=== PATIENT | female | born 1965 | race Caucasian/White ===

== ENCOUNTER 2019-07-12 18:12 | Inpatient (IN) | payer MEDICARE, MEDICAID ==
[~2019-07-12] VITALS: Ht 165.1 cm; Wt 89.5 kg
[~2019-07-12 18:12] MED LIST: DULO60CA65; GLYB5TAB7 PO; LEVO175T7 PO; LISI-604 PO; METO1TAB25 PO; OMEP-297 PO; ONDA4TAB9 PO
[2019-07-12 19:42] LABS: BASOPHILS # (AUTO) 0.1 X10'3 (0-0.2); BASOPHILS % (AUTO) 1.1 % (0-1); EOSINOPHILS # (AUTO) 0.4 X10'3 (0-0.9); HEMATOCRIT 46.7 % (35.0-45.0); HEMOGLOBIN 16.5 g/dl (12.0-16.0); LYMPHOCYTES # (AUTO) 5.3 X10'3 (1.1-4.8); MEAN CORPUSCULAR HEMOGLOBIN 32.3 PG (27.0-31.0); MEAN CORPUSCULAR HGB CONC 35.3 g/dL (33.0-36.5); MEAN CORPUSCULAR VOLUME 91.6 FL (78-98); MEAN PLATELET VOLUME 9.3 FL (7.4-10.4); MONOCYTES # (AUTO) 0.7 X10'3 (0-0.9); NEUTROPHILS # (AUTO) 5.5 X10'3 (1.8-7.7); NEUTROPHILS % (AUTO) 45.9 % (42-75); PLATELET COUNT 338 X10'3 (140-440); RED CELL DISTRIBUTION WIDTH 13.6 % (11.5-14.5)
[2019-07-12 19:53] LABS: ALANINE AMINOTRANSFERASE 57 U/L (12-78); ALBUMIN 3.8 G/DL (3.4-5.0); ALKALINE PHOSPHATASE 108 IU/L (46-116); ANION GAP 9 (8-16); ASPARTATE AMINO TRANSFERASE 35 U/L (10-37); BILIRUBIN,TOTAL 0.3 MG/DL (0.1-1.0); BLOOD UREA NITROGEN 24 MG/DL (7-18); BUN/CREATININE RATIO 20.5 (6.6-38.0); CALCIUM 9.1 MG/DL (8.5-10.1); CHLORIDE 104 MMOL/L (99-107); CREATININE 1.17 MG/DL (0.40-0.90); GLUCOSE 254 MG/DL (70-104); POTASSIUM 4.4 MMOL/L (3.5-5.1); SODIUM 136 MMOL/L (135-145); TOTAL CARBON DIOXIDE 22.7 MMOL/L (24-32); TOTAL PROTEIN 7.6 G/DL (6.4-8.2); eGFR 48 ML/MIN
[2019-07-12] MEDS ORDERED: vancomycin/NS 1 GM ADD-VANTAGE 250 ML IV ONE (20:05)
[2019-07-12] MEDS ORDERED: ringers solution, lactated 1000ml IV soln IV ONE (20:05)
--- NOTE | 2019-07-12 20:54 | NUR ---
Patient resting comfortably in bed. She requests water which is provided. Patient updated on POC.
[2019-07-12 21:04] LABS: CLARITY,URINE CLEAR (Clear); COLOR,URINE YELLOW (Yellow); GLUCOSE, URINE >=1000 mg/dl (Neg); KETONES,URINE NEGATIVE (Neg); LEUKOCYTE ESTERASE ,URINE NEGATIVE (Neg); NITRITES, URINE NEGATIVE (Neg); OCCULT BLOOD,URINE NEGATIVE (Neg); PROTEIN,URINE NEGATIVE (Neg); UROBILINOGEN,URINE 0.2 E.U/dL (0.2-1.0)
[2019-07-12 21:05] LABS: UA COLLECTION TYPE CLN CATCH MIDSTREAM
[2019-07-12 21:11] LABS: BACTERIA,URINE 1+ /HPF (Neg); MUCUS STRANDS NONE SEEN /LPF (Neg); RBC,URINE NONE SEEN /HPF (0-2); SQUAMOUS EPITHELIAL CELL,UR MANY /LPF (FEW); WBC,URINE NONE SEEN /HPF (0-4)
[2019-07-12] MEDS ORDERED: normal saline 1000ml 1,000 ML IV SCH (21:29)
[2019-07-12] MEDS ORDERED: dextrose ORAL solution 15 GM/59 ML bottle PO PRN ×2 (21:30)
[2019-07-12] MEDS ORDERED: potassium CL 10mEq/100ml bag 100 ML IV PRN ×2 (21:30)
[2019-07-12] MEDS ORDERED: ondansetron/PF 4mg/2ml inj IV PRN ×2 (21:30→21:45)
[2019-07-12] MEDS ORDERED: MESSAGE TO PHARMACY PO ONE (21:30)
[2019-07-12] MEDS ORDERED: magnesium Cl slow-release 64mg tablet PO PRN (21:30)
[2019-07-12] MEDS ORDERED: potassium Cl 20 mEq SR tablet PO PRN ×2 (21:30)
[2019-07-12] MEDS ORDERED: magnesium 4gm in 100ml NS 100 ML IV PRN (21:30)
[2019-07-12] MEDS ORDERED: magnesium 2GM in 50ml NS 50 ML IV PRN (21:30)
[2019-07-12] MEDS ORDERED: dextrose 50%-water 50ml dispensing syringe IV PRN ×2 (21:30)
[2019-07-12] MEDS ORDERED: acetaminophen 325mg tablet PO PRN ×2 (21:30)
[2019-07-12] MEDS ORDERED: glucagon, human recombinant 1mg kit SUBCUT PRN (21:30)
[2019-07-12 22:01] LABS: HEMOGLOBIN A1C 8.8 % (4.5-6.2)
--- NOTE | 2019-07-12 22:30 | NUR ---
BELONGINGS: SHIRT, BRA, FLIP/FLOPS, CELL PHONE & ASSEMBLER RUBBER FOOTWEAR, GALDAMEZ ($18), PURSE & WALLET,. EARRINGS (X4), READING GLASSES
--- NOTE | 2019-07-12 22:45 | NUR ---
Received report from Gi in the ER. Pt arrived on the unit via gurney and was able to ambulate to the bed. NS running @ 20mls/hr, VSS, R/A. No signs of distress. Will continue to monitor.
[2019-07-12] MEDS ORDERED: LANTUS SQ (23:30)
[2019-07-13] VITALS: BP 139/71
[2019-07-13 05:14] LABS: BASOPHILS # (AUTO) 0.1 X10'3 (0-0.2); EOSINOPHILS # (AUTO) 0.4 X10'3 (0-0.9); EOSINOPHILS % (AUTO) 3.8 % (0-6); HEMOGLOBIN 14.8 g/dl (12.0-16.0); MONOCYTES # (AUTO) 0.6 X10'3 (0-0.9); MONOCYTES % (AUTO) 5.9 % (2-12); WHITE BLOOD COUNT 9.9 X10'3 (4.5-11.0)
[2019-07-13 05:18] LABS: BASOPHILS % (AUTO) 0.8 % (0-1); HEMATOCRIT 41.9 % (35.0-45.0); LYMPHOCYTES # (AUTO) 5.5 X10'3 (1.1-4.8); LYMPHOCYTES % (AUTO) 55.6 % (21-51); MEAN CORPUSCULAR HEMOGLOBIN 32.3 PG (27.0-31.0); MEAN CORPUSCULAR HGB CONC 35.4 g/dL (33.0-36.5); MEAN CORPUSCULAR VOLUME 91.2 FL (78-98); NEUTROPHILS # (AUTO) 3.4 X10'3 (1.8-7.7); NEUTROPHILS % (AUTO) 33.9 % (42-75); PLATELET COUNT 278 X10'3 (140-440); RED CELL DISTRIBUTION WIDTH 13.8 % (11.5-14.5)
[2019-07-13 05:31] LABS: ALBUMIN 3.2 G/DL (3.4-5.0); ANION GAP 9 (8-16); BLOOD UREA NITROGEN 22 MG/DL (7-18); BUN/CREATININE RATIO 19.8 (6.6-38.0); CALCIUM 8.5 MG/DL (8.5-10.1); CHLORIDE 106 MMOL/L (99-107); CREATININE 1.11 MG/DL (0.40-0.90); GLUCOSE 171 MG/DL (70-104); MAGNESIUM 1.7 MG/DL (1.5-2.4); SODIUM 139 MMOL/L (135-145); eGFR 51 ML/MIN
--- NOTE | 2019-07-13 06:26 | NUR ---
Patient in room [facility]. I have received report from allie medellin and had the opportunity to ask questions and assume patient care.
[2019-07-13 06:40] LABS: TOTAL CELLS COUNTED 100
[2019-07-13 06:41] LABS: PLATELET ESTIMATE NORMAL
--- NOTE | 2019-07-13 06:55 | NUR ---
Problems reprioritized. Patient report given, questions answered & plan of care reviewed with Catherine SKAGGS.
[2019-07-13 07:00] VITALS: BP 121/68
[2019-07-13] MEDS: K and/or MAG REPLACEMENT MC SCH ×2 (08:00→20:00)
[2019-07-13] MEDS: VANCOmycin 1250MG/NS 250ml Bag 250 ML IV SCH ×2 (08:52→21:11)
[2019-07-13] MEDS ORDERED: DULO30CA52 PO (09:38)
[2019-07-13] MEDS: levoTHYROXINE 175mcg tablet PO SCH (10:50)
[2019-07-13] MEDS: duloxetine 30mg CAPSULE.DR PO SCH (10:50)
[2019-07-13] MEDS: HYDROcodone/acetaminophen 10/325mg tab PO PRN ×2 (10:51→21:11)
[2019-07-13] MEDS ORDERED: metoprolol tartrate 50mg tablet PO SCH (11:00)
[2019-07-13] MEDS ORDERED: HYDROchlorothiazide 25mg tablet PO SCH (11:00)
[2019-07-13] MEDS ORDERED: GLIP10TA11 PO (11:02)
[2019-07-13] MEDS ORDERED: METO25TA6 PO (11:03)
[2019-07-13] MEDS ORDERED: EZET10TA48 PO (11:05)
[2019-07-13] MEDS ORDERED: INSU100C10 SQ (11:05)
[2019-07-13] MEDS ORDERED: dextrose ORAL solution 15 GM/59 ML bottle PO PRN ×2 (11:15)
[2019-07-13] MEDS ORDERED: MESSAGE TO PHARMACY PO ONE (11:15)
[2019-07-13] MEDS ORDERED: glucagon, human recombinant 1mg kit SUBCUT PRN (11:15)
[2019-07-13] MEDS ORDERED: dextrose 50%-water 50ml dispensing syringe IV PRN ×2 (11:15)
[2019-07-13] MEDS: metoprolol tartrate 12.5mg (1/2 tablet) PO SCH ×2 (11:15→20:00)
[2019-07-13] MEDS ORDERED: TETanus/Pertussis (Acell)/Diphther VAC/PF (Tdap-Adult) 0.5ml syringe IMVAC ONE (11:20)
[2019-07-13 11:36] VITALS: BP 100/54
--- NOTE | 2019-07-13 12:26 | NUR ---
staff talked with patient with regards code status. patient wants code status changed to full code. Dr wilde informed, awaiting order.
[2019-07-13] MEDS: insulin Lispro (HumaLOG) vial - multi-dose SQ SCH ×3 (12:47→21:15)
--- NOTE | 2019-07-13 14:56 | NUR ---
DM consult: Pt with A1c 8.8 seen at bedside. Pt reports her A1c was in the sevens this past few months and pt is unsure as to why her A1c is up. Pt reports taking the same DM medications per rx and states she hasn't made any changes in her dietary habits or exercise. Pt reports she lost several family members this year including her son, it's likely that patient's BG levels have been fluctuating r/t stress. Pt reports she doesn't have a consistent MD for DM management however would like resources to help her find an tracer clerk, RD called and left a VM to for resources. Pt denies any further questions about DM management. Pt admit with cellulitis. Written and verbal protein and DM education with referral to DM class and RD contact information provided. Pt reports improving appetite and is with no food preferences at this time. Pt currently on a CHO controlled diet documented with 100% PO intake meeting nutrient needs. Pt denies food allergies, difficulty chewing/swallowing, or constipation/diarrhea. [facility] 07/12. Will continue to follow. Addendum: 07/13/19 at [address] Amended: Links added.
--- NOTE | 2019-07-13 18:44 | NUR ---
Problems reprioritized. Patient report given, questions answered & plan of care reviewed with Tete SKAGGS.
[2019-07-13 20:00] VITALS: BP 114/62
[2019-07-13] MEDS ORDERED: insulin glargine (Lantus) pen - multi-dose SQ SCH (21:00)
[2019-07-13] MEDS ORDERED: ezetimibe 10mg tablet PO SCH (21:00)
--- NOTE | 2019-07-13 22:27 | NUR ---
Patient in room [facility]. I have received report from GILES Alexander and had the opportunity to ask questions and assume patient care. Addendum: 07/13/19 at 2228 by Tete Jimenez RN Amended: Links added.
[2019-07-14] VITALS: BP 115/55
[2019-07-14 05:35] LABS: BASOPHILS # (AUTO) 0.1 X10'3 (0-0.2); BASOPHILS % (AUTO) 0.8 % (0-1); EOSINOPHILS # (AUTO) 0.3 X10'3 (0-0.9); EOSINOPHILS % (AUTO) 4.9 % (0-6); HEMATOCRIT 39.6 % (35.0-45.0); HEMOGLOBIN 13.9 g/dl (12.0-16.0); LYMPHOCYTES % (AUTO) 56.5 % (21-51); MEAN CORPUSCULAR HEMOGLOBIN 32.6 PG (27.0-31.0); MEAN CORPUSCULAR HGB CONC 35.1 g/dL (33.0-36.5); MEAN CORPUSCULAR VOLUME 92.6 FL (78-98); MONOCYTES # (AUTO) 0.4 X10'3 (0-0.9); MONOCYTES % (AUTO) 5.6 % (2-12); NEUTROPHILS # (AUTO) 2.3 X10'3 (1.8-7.7); NEUTROPHILS % (AUTO) 32.2 % (42-75); PLATELET COUNT 235 X10'3 (140-440); RED BLOOD COUNT 4.27 X10'6 (4.20-5.60); RED CELL DISTRIBUTION WIDTH 13.8 % (11.5-14.5)
[2019-07-14 05:48] LABS: ALBUMIN 3.3 G/DL (3.4-5.0); ANION GAP 6 (8-16); BLOOD UREA NITROGEN 19 MG/DL (7-18); BUN/CREATININE RATIO 19.2 (6.6-38.0); CALCIUM 8.4 MG/DL (8.5-10.1); CHLORIDE 105 MMOL/L (99-107); CREATININE 0.99 MG/DL (0.40-0.90); GLUCOSE 204 MG/DL (70-104); MAGNESIUM 1.8 MG/DL (1.5-2.4); POTASSIUM 4.2 MMOL/L (3.5-5.1); SODIUM 139 MMOL/L (135-145); TOTAL CARBON DIOXIDE 27.6 MMOL/L (24-32); eGFR 58 ML/MIN
[2019-07-14 06:00] VITALS: BP 107/57
--- NOTE | 2019-07-14 06:17 | NUR ---
Problems reprioritized. Patient report given, questions answered & plan of care reviewed with GILES peters. Addendum: 07/14/19 at 0617 by Tete Jimenez RN Amended: Links added.
--- NOTE | 2019-07-14 06:24 | NUR ---
Patient in room [facility]. I have received report from richa SKAGGS and had the opportunity to ask questions and assume patient care.
[2019-07-14] MEDS: levoTHYROXINE 175mcg tablet PO SCH (07:31)
[2019-07-14] MEDS: VANCOmycin 1250MG/NS 250ml Bag 250 ML IV SCH (07:31)
[2019-07-14] MEDS: metoprolol tartrate 12.5mg (1/2 tablet) PO SCH (07:31)
[2019-07-14] MEDS: duloxetine 30mg CAPSULE.DR PO SCH (07:31)
[2019-07-14] MEDS: HYDROcodone/acetaminophen 10/325mg tab PO PRN (07:34)
[2019-07-14] MEDS ORDERED: pantoprazole 40mg Tablet.DR PO SCH (08:00)
[2019-07-14] MEDS: K and/or MAG REPLACEMENT MC SCH (08:00)
[2019-07-14] MEDS: insulin Lispro (HumaLOG) vial - multi-dose SQ SCH ×2 (09:40→12:58)
[2019-07-14 11:00] VITALS: BP 110/60
[2019-07-14] MEDS ORDERED: HYDR-4353 PO (14:30)
[2019-07-14] MEDS ORDERED: LEVO500T2 PO (14:30)
--- NOTE | 2019-07-14 14:49 | NUR ---
patient seen by DR Arora is for discharge, All DC instructions given to patient. prescription for norco given to patient. Patient awaiting ride at this time.
[2019-07-14] MEDS ORDERED: VANCOMYCIN LEVEL IV ONE (19:30)
== END 2019-07-14 17:30 | disposition home or self-care (01) | DRG 603 ==
LOC: ER 18:12 → SUR 3N 21:43
PROVIDERS: ADMIT Internal Medicine; ATTEND Family Medicine
PROC: 3E0234Z Introduction of Serum, Toxoid and Vaccine into Muscle, Percutaneous Approach (ICD-10-PCS; principal; 2019-07-13)
DX: L03.311 Cellulitis of abdominal wall (principal); N17.9 Acute kidney failure, unspecified; L03.116 Cellulitis of left lower limb; E03.9 Hypothyroidism, unspecified; F32.9 Major depressive disorder, single episode, unspecified; I12.9 Hypertensive chronic kidney disease with stage 1 through stage 4 chronic kidney disease, or unspecified chronic kidney disease; E11.22 Type 2 diabetes mellitus with diabetic chronic kidney disease; N18.9 Chronic kidney disease, unspecified; G43.909 Migraine, unspecified, not intractable, without status migrainosus; K21.9 Gastro-esophageal reflux disease without esophagitis; W18.39XA Other fall on same level, initial encounter; S80.212A Abrasion, left knee, initial encounter; Z88.9 Allergy status to unspecified drugs, medicaments and biological substances; Z23 Encounter for immunization; Z87.891 Personal history of nicotine dependence; Z88.5 Allergy status to narcotic agent; Z88.0 Allergy status to penicillin; Z88.8 Allergy status to other drugs, medicaments and biological substances; Z90.49 Acquired absence of other specified parts of digestive tract; Z82.49 Family history of ischemic heart disease and other diseases of the circulatory system; Z80.9 Family history of malignant neoplasm, unspecified; Y93.89 Activity, other specified; Y92.89 Other specified places as the place of occurrence of the external cause; Y99.8 Other external cause status
CPT/HCPCS: 36415; 71045; 80048; 80053; 81001; 82948; 83036; 83605; 83735; 84145; 84443; 84484; 85025; 87040; 87081; 90715; 93005; 96365; 99285; G0378; J1815; J2405; J3370; J7030; J7120

== ENCOUNTER 2021-09-03 21:35 | Emergency (ER) | payer MEDICARE, MEDICAID ==
[~2021-09-03] VITALS: Ht 162.6 cm; Wt 81.8 kg
[~2021-09-03 21:35] MED LIST changes: +DULO30CA52 PO; -DULO60CA65; +EZET10TA48 PO; +GLIP10TA11 PO; -GLYB5TAB7 PO; +HYDR-4353 PO; +INSU100C10 SQ; +LANTUS SQ; -LISI-604 PO; +LOP25T PO; -METO1TAB25 PO; -OMEP-297 PO; +OMEP20CA15 PO
[2021-09-03] MEDS ORDERED: clindamycin 150mg capsule PO ONE (22:05)
[2021-09-03] MEDS ORDERED: HYDROcodone/acetaminophen 5mg/325mg tablet PO ONE (22:30)
[2021-09-03] MEDS ORDERED: normal saline 1000ML IV soln IVB ONE (22:30)
[2021-09-03 22:37] LABS: BASOPHILS # (AUTO) 0.1 X10'3 (0-0.2); BASOPHILS % (AUTO) 0.7 % (0-1); EOSINOPHILS # (AUTO) 0.4 X10'3 (0-0.9); HEMATOCRIT 39.8 % (35.0-45.0); HEMOGLOBIN 13.4 g/dl (12.0-16.0); LYMPHOCYTES # (AUTO) 3.1 X10'3 (1.1-4.8); LYMPHOCYTES % (AUTO) 38.2 % (21-51); MEAN CORPUSCULAR HEMOGLOBIN 30.7 PG (27.0-31.0); MEAN CORPUSCULAR HGB CONC 33.6 g/dL (33.0-36.5); MEAN CORPUSCULAR VOLUME 91.3 FL (78-98); MEAN PLATELET VOLUME 9.9 FL (7.4-10.4); MONOCYTES # (AUTO) 0.5 X10'3 (0-0.9); MONOCYTES % (AUTO) 6.6 % (2-12); NEUTROPHILS % (AUTO) 49.5 % (42-75); PLATELET COUNT 237 X10'3 (140-440); RED BLOOD COUNT 4.36 X10'6 (4.20-5.60); RED CELL DISTRIBUTION WIDTH 12.9 % (11.5-14.5); WHITE BLOOD COUNT 8.2 X10'3 (4.5-11.0)
[2021-09-03 22:50] LABS: ALBUMIN 2.9 G/DL (3.4-5.0); ANION GAP 6 (8-16); BLOOD UREA NITROGEN 14 MG/DL (7-18); BUN/CREATININE RATIO 15.2 (6.6-38.0); CALCIUM 8.2 MG/DL (8.5-10.1); CHLORIDE 102 MMOL/L (99-107); CREATININE 0.92 MG/DL (0.40-0.90); GLUCOSE 417 MG/DL (70-104); POTASSIUM 3.6 MMOL/L (3.5-5.1); SODIUM 134 MMOL/L (135-145); TOTAL CARBON DIOXIDE 26.4 MMOL/L (24-32); eGFR 63 ML/MIN
--- NOTE | 2021-09-03 22:57 | NUR ---
SET UP FOR PROCEDURE, LAC TRAY.
[2021-09-03] MEDS ORDERED: CLIN-97 PO (23:03)
[2021-09-03 23:26] VITALS: BP 151/87
== END 2021-09-03 23:28 | disposition home or self-care (01) ==
LOC: ER 21:36
DX: L03.211 Cellulitis of face (principal); E11.65 Type 2 diabetes mellitus with hyperglycemia; G43.909 Migraine, unspecified, not intractable, without status migrainosus; Z87.19 Personal history of other diseases of the digestive system; Z90.49 Acquired absence of other specified parts of digestive tract; Z72.89 Other problems related to lifestyle; Z88.8 Allergy status to other drugs, medicaments and biological substances; Z88.1 Allergy status to other antibiotic agents; Z79.2 Long term (current) use of antibiotics; Z79.4 Long term (current) use of insulin; Z79.899 Other long term (current) drug therapy
CPT/HCPCS: 10060; 36415; 80048; 82948; 85025; 96360; 99284; J7030

== ENCOUNTER 2024-01-02 09:36 | Emergency (ER) | payer MEDICARE, MEDICAID ==
[~2024-01-02] VITALS: Ht 162.6 cm; Wt 72.8 kg
[~2024-01-02 09:36] MED LIST changes: +CLIN-97 PO
[2024-01-02 09:43] VITALS: BP 117/78; PULSE 89; TEMP 98; O2SAT 98
[2024-01-02 11:02] VITALS: RESP 16
[2024-01-02] MEDS ORDERED: DOXY-356 PO (12:02)
[2024-01-02] MEDS: mupirocin 2% ointment 22GM TP STA (12:30)
== END 2024-01-02 12:34 | disposition home or self-care (01) ==
LOC: ER 09:36
DX: S00.01XA Abrasion of scalp, initial encounter (principal); L02.811 Cutaneous abscess of head [any part, except face]; L73.9 Follicular disorder, unspecified; E11.9 Type 2 diabetes mellitus without complications; G43.909 Migraine, unspecified, not intractable, without status migrainosus; I50.9 Heart failure, unspecified; Z88.8 Allergy status to other drugs, medicaments and biological substances; Z91.041 Radiographic dye allergy status; Z88.5 Allergy status to narcotic agent; Z88.0 Allergy status to penicillin; Z79.2 Long term (current) use of antibiotics; Z79.899 Other long term (current) drug therapy; Z79.84 Long term (current) use of oral hypoglycemic drugs; Z90.710 Acquired absence of both cervix and uterus; W19.XXXA Unspecified fall, initial encounter; Y93.89 Activity, other specified; Y92.89 Other specified places as the place of occurrence of the external cause; Y99.8 Other external cause status
CPT/HCPCS: 70450; 72125; 99284; L0172

== ENCOUNTER 2024-01-07 18:27 | Emergency (ER) | payer MEDICARE, MEDICAID ==
[~2024-01-07] VITALS: Ht 162.6 cm; Wt 75.0 kg
[~2024-01-07 18:27] MED LIST changes: +DOXY-356 PO
[2024-01-07 18:53] VITALS: BP 139/85; PULSE 86; O2SAT 98
[2024-01-07] MEDS ORDERED: SULF1TAB49 PO (20:13)
[2024-01-07] MEDS: LIDOcaine 1% W/epiNEPHrine 1:100,000 20ml vial IJ ONE (20:19)
[2024-01-07] MEDS: sulfamethoxazole/trimethoprim DS (800/160mg) tablet PO ONE (20:20)
[2024-01-07 20:25] VITALS: RESP 18; TEMP 98.3
== END 2024-01-07 20:22 | disposition home or self-care (01) ==
LOC: ER 18:28
DX: L02.811 Cutaneous abscess of head [any part, except face] (principal); G43.909 Migraine, unspecified, not intractable, without status migrainosus; E11.9 Type 2 diabetes mellitus without complications; F32.A Depression, unspecified; Z90.49 Acquired absence of other specified parts of digestive tract; I50.9 Heart failure, unspecified; Z72.89 Other problems related to lifestyle; Z88.0 Allergy status to penicillin; Z88.8 Allergy status to other drugs, medicaments and biological substances; Z79.84 Long term (current) use of oral hypoglycemic drugs; Z79.4 Long term (current) use of insulin; Z79.899 Other long term (current) drug therapy; Z79.2 Long term (current) use of antibiotics
CPT/HCPCS: 10060; 99283; A6402; Z7610; A6449

== ENCOUNTER 2024-05-02 09:59 | Emergency (ER) | payer MEDICARE, MEDICAID ==
[~2024-05-02] VITALS: Ht 162.6 cm; Wt 77.3 kg
[~2024-05-02 09:59] MED LIST changes: -DOXY-356 PO
[2024-05-02 10:09] VITALS: BP 125/79; PULSE 97; RESP 16; TEMP 97.8; O2SAT 98
== END 2024-05-02 19:02 | disposition left against medical advice (07) ==
LOC: ER 10:00
DX: M54.9 Dorsalgia, unspecified (principal); Z53.21 Procedure and treatment not carried out due to patient leaving prior to being seen by health care provider; W19.XXXA Unspecified fall, initial encounter; Y93.89 Activity, other specified; Y92.89 Other specified places as the place of occurrence of the external cause; Y99.8 Other external cause status

== ENCOUNTER 2024-08-05 07:25 | Emergency (ER) | payer MEDICARE, MEDICAID ==
[~2024-08-05] VITALS: Ht 163.8 cm; Wt 73.1 kg
[~2024-08-05 07:25] MED LIST changes: -GLIP10TA11 PO; +GLIP10TA18 PO
[2024-08-05 07:26] VITALS: TEMP 98.4
[2024-08-05 09:21] VITALS: BP 114/80; PULSE 80; O2SAT 97
[2024-08-05] MEDS ORDERED: DOXY-460 PO (09:57)
[2024-08-05] MEDS: LIDOcaine 1% W/epiNEPHrine 1:100,000 20ml vial SQ ONE (10:01)
[2024-08-05 10:02] VITALS: RESP 17
== END 2024-08-05 10:31 | disposition home or self-care (01) ==
LOC: ER 07:26
DX: L03.115 Cellulitis of right lower limb (principal); L02.415 Cutaneous abscess of right lower limb; E11.9 Type 2 diabetes mellitus without complications; I50.9 Heart failure, unspecified; G43.909 Migraine, unspecified, not intractable, without status migrainosus; F32.A Depression, unspecified; Z90.49 Acquired absence of other specified parts of digestive tract; Z88.8 Allergy status to other drugs, medicaments and biological substances; Z88.1 Allergy status to other antibiotic agents; Z79.4 Long term (current) use of insulin; Z79.899 Other long term (current) drug therapy; Z72.89 Other problems related to lifestyle
CPT/HCPCS: 10060; 99283; A6258; A6407; Z7610